=== PATIENT | male | born 1965 | race American Indian/Alaskan Native ===

== ENCOUNTER 2017-10-02 09:44 | Outpatient (CLI) | payer OTHER ==
--- NOTE | 2017-10-02 11:24 | XRay Report ---
LEFT HIP, 2 views: History: Inflammatory arthritis, blood clots The bony architecture is intact without evidence of fracture or dislocation. No significant soft tissue abnormality is seen. IMPRESSION: Normal left hip.
--- NOTE | 2017-10-02 11:25 | XRay Report ---
LUMBOSACRAL SPINE, 3 VIEWS: History: Inflammatory arthritis, blood clots Findings: The vertebral bodies, disk spaces and posterior elements are intact. No compression deformity or malalignment. Mild diffuse facet arthropathy is identified. The disc spaces are within normal limits. The SI joints are symmetric and unremarkable. Impression: Mild facet arthropathy throughout the lumbar spine.
== END 2017-10-02 09:45 | disposition home or self-care (01) ==
LOC: XRAY 09:44
PROVIDERS: ATTEND Internal Medicine
DX: M12.88 Other specific arthropathies, not elsewhere classified, other specified site (principal); F31.9 Bipolar disorder, unspecified; F90.9 Attention-deficit hyperactivity disorder, unspecified type; F81.9 Developmental disorder of scholastic skills, unspecified; K21.9 Gastro-esophageal reflux disease without esophagitis; M13.80 Other specified arthritis, unspecified site; G47.30 Sleep apnea, unspecified; I82.90 Acute embolism and thrombosis of unspecified vein
CPT/HCPCS: 72100

== ENCOUNTER 2019-05-29 20:30 | Emergency (ER) | payer SELFPAY ==
[2019-05-29 21:01] VITALS: BP 127/80
--- NOTE | 2019-05-29 21:01 | Event Note ---
ED Screening Note Date of service: 05/29/19 Time: 21:01 ED Screening Note: Pt complains of right middle finger laceration via a razor x today. This initial assessment/diagnostic orders/clinical plan/treatment(s) is/are subject to change based on patients health status, clinical progression and re- assessment by fellow clinical providers in the ED. Further treatment and workup at subsequent clinical providers discretion. Patient/guardian urged not to elope from the ED as their condition may be serious if not clinically assessed and managed. Initial orders include: tdap
[2019-05-29] MEDS ORDERED: TETANUS,DIPH,PERTUSS(ACELL) VACCINE 0.5 ML SYRINGE IM ONE (21:02)
--- NOTE | 2019-05-29 23:26 | Emergency Department Report ---
ED Laceration HPI - HPI Chief Complaint: Wound/Laceration Stated Complaint: CUT RIGHT MIDDLE FINGER Time Seen by Provider: 05/29/19 21:00 Occurred When: Today Location: Upper Extremity Severity: moderate Tetanus Status: Not up to Date Laceration Symptoms: Yes Pain, No Foreign Body Sensation, No Numbness, No Weakness Other History: finger laceration to right index finger from a razor ED Review of Systems ROS: Stated complaint: CUT RIGHT MIDDLE FINGER Other details as noted in HPI Comment: All other systems reviewed and negative ED Past Medical Hx - Past Medical History Previous Medical History?: No - Surgical History Past Surgical History?: No - Social History Smoking Status: Never Smoker Substance Use Type: None Laceration Physical Exam - Exam General: Vital signs noted. No distress. Alert and acting appropriately. Wound Length (cm): 2 Laceration Location: Upper Extremity Laceration Exam: Yes Normal Distal CMS, No Foreign Body, No Exposed Tendon, Vessel, or Nerve, No Tendon Injury ED Course Vital Signs 05/29/19 20:34 Temperature 98.3 F Pulse Rate 64 Respiratory 20 Rate Blood Pressure 127/80 O2 Sat by Pulse 97 Oximetry - Procedure Description Procedures done: Was prepped and draped in sterile fashion anesthesia achieved with 2% lidocaine with no epinephrine. 5-0 Prolene was placed in simple interrupted fashion 2 closure procedure was tolerated well this minute blood loss was less than 2 mL Critical care attestation.: If time is entered above; I have spent that time in minutes in the direct care of this critically ill patient, excluding procedure time. ED Disposition Clinical Impression: Finger laceration Disposition: DC-01 TO HOME OR SELFCARE Is pt being admited?: No Does the pt Need Aspirin: No Condition: Stable Instructions: Finger Laceration (ED) Referrals: [facility] [Provider Group] - 3-5 Days
== END 2019-05-29 23:58 | disposition home or self-care (01) ==
LOC: ED 20:30
DX: S61.212A Laceration without foreign body of right middle finger without damage to nail, initial encounter (principal); W26.8XXA Contact with other sharp object(s), not elsewhere classified, initial encounter; Y93.89 Activity, other specified; Y92.89 Other specified places as the place of occurrence of the external cause; Y99.8 Other external cause status
CPT/HCPCS: 90471; 90715